=== PATIENT | male | born 2000 | race African-American/Black ===

== ENCOUNTER 2023-10-04 15:32 | Emergency (ER) | payer OTHER ==
[2023-10-04 17:31] LABS: SARS-CoV-2 Antigen Rapid Res Negative (Negative)
--- NOTE | 2023-10-04 17:43 | ER ---
Nurse's Notes [facility] Name: Yadi Garibay Age: 23 yrs Sex: Male : 2000 Arrival Date: 10/04/2023 Time: 15:32 Bed 12 Private MD: Diagnosis: Streptococcal pharyngitis Presentation: 10/04 16:02 Chief complaint: Patient states: PATIENT STATES DIARRHEA AND SORE THROAT X 3 DAYS. db Coronavirus screen: Client denies travel out of the [place] in the last 14 days. At this time, the client does not indicate any symptoms associated with coronavirus-19. Ebola Screen: Patient negative for fever greater than or equal to 101.5 degrees Fahrenheit, and additional compatible Ebola Virus Disease symptoms Patient denies exposure to infectious person. Patient denies travel to an Ebola-affected area in the 21 days before illness onset. No symptoms or risks identified at this time. Initial Sepsis Screen: Does the patient meet any 2 criteria? HR > 90 bpm. Does the patient have a suspected source of infection? No. Patient's initial sepsis screen is negative. Risk Assessment: Do you want to hurt yourself or someone else? Patient reports no desire to harm self or others. Onset of symptoms was October 04, 2023. 16:02 Method Of Arrival: Ambulatory db 16:02 Acuity: FANNY 3 db Triage Assessment: 16:04 General: Appears in no apparent distress. comfortable, Behavior is calm, cooperative. db Pain: Complains of pain in THROAT. Neuro: Level of Consciousness is awake, alert, obeys commands, Oriented to person, place, time, situation. GI: No deficits noted. Reports diarrhea. Historical: - Allergies: 16:04 No Known Allergies; db - Immunization history:: Adult Immunizations unknown, Client reports receiving the 2nd dose of the Covid vaccine. - Social history:: Smoking status: Smoking status: Patient reports the use of cigarette tobacco products, cigars. - Family history:: not pertinent. Screenin:56 [facility] ED Fall Risk Assessment (Adult) History of falling in the last 3 months, cp4 including since admission. 17:56 [facility] ED Fall Risk Assessment (Adult) History of falling in the last 3 months, cp4 including since admission No falls in past 3 months (0 pts) Confusion or Disorientation No (0 pts) Intoxicated or Sedated No (0 pts) Impaired Gait No (0 pts) Mobility Assist Device Used No (0 pt) Altered Elimination No (0 pt) Score/Fall Risk Level 0 - 2 = Low Risk Oriented to surroundings, Maintained a safe environment, Educated pt \T\ family on fall prevention, incl call for assistance when getting out of bed, Hourly rounding (assess needs \T\ fall precautionary measures) done. Abuse screen: Denies threats or abuse. Nutritional screening: No deficits noted. Tuberculosis screening: No symptoms or risk factors identified. Assessment: 17:56 General: Appears in no apparent distress. Behavior is calm, cooperative, appropriate cp4 for age. Vital Signs: 16:02 BP 150 / 92; Pulse 116; Resp 18; Temp 100.6(O); Pulse Ox 98% ; Weight 74.84 kg; Height db 5 ft. 6 in. ; 17:58 BP 146 / 91; Pulse 100; Resp 16; Pulse Ox 99% ; cp4 16:02 Body Mass Index 26.63 (74.84 kg, 167.64 cm) db ED Course: 15:34 Patient arrived in ED. mr 15:35 Jose Arredondo MD is Attending Physician. rt 16:04 Triage completed. db 16:05 Arm band placed on. db 16:57 SARS RAPID Sent. bc6 16:57 Strep Sent. bc6 16:57 Influenza Screen (a \T\ B) Sent. bc6 17:23 Patient placed in an exam room, on a stretcher. ll1 17:27 Christiane Ayala is Primary Nurse. cp4 17:56 Bed in low position. Call light in reach. Side rails up X 1. Provided Education on: cp4 strep throat. 17:56 No provider procedures requiring assistance completed. Patient did not have IV access cp4 during this emergency room visit. Administered Medications: 17:40 Drug: Ibuprofen PO 600 mg PO once Route: PO; cp4 18:01 Follow up: Response: No adverse reaction cp4 Medication: 17:56 VIS not applicable for this client. cp4 Outcome: 17:42 Discharge ordered by . rt 17:56 Discharged to home ambulatory, cp4 17:56 Condition: stable 17:56 Discharge instructions given to patient, Instructed on discharge instructions, follow up and referral plans. medication usage, Demonstrated understanding of instructions, follow-up care, medications, Prescriptions given X 1, 18:02 Patient left the ED. cp4 Signatures: Francisca Thompsno, Reg Reg mr Reyna Longo, RN RN ll1 Ivette Lyons RN RN db Jose Arredondo MD MD rt Wendy Anderson 6 Christiane Ayala cp4 Corrections: (The following items were deleted from the chart) 16:05 16:04 Arm band placed on Patient placed in an exam room, mar manuel
--- NOTE | 2023-10-04 17:43 | EDPHYS ---
Physician Documentation [facility] Name: Yadi Garibay Age: 23 yrs Sex: Male : 2000 Arrival Date: 10/04/2023 Time: 15:32 Bed 12 Private MD: ED Physician Jose Arredondo HPI: 10/04 17:54 This 23 yrs old Black Male presents to ER via Ambulatory with complaints of Throat rt problem, Diarrhea. 17:54 Patient presents to the ED with sore throat, diarrhea, cough, fever, chills, body aches rt for the past 3 days. States that symptoms have somewhat worsened today. Denies difficulty swallowing. Denies other acute complaints at this time, symptoms are mild in severity, no other aggravating relieving factors. Historical: - Allergies: 16:04 No Known Allergies; db - Immunization history:: Adult Immunizations unknown, Client reports receiving the 2nd dose of the Covid vaccine. - Social history:: Smoking status: Smoking status: Patient reports the use of cigarette tobacco products, cigars. - Family history:: not pertinent. ROS: 17:54 Abdomen/GI: Negative for abdominal pain, nausea, vomiting, diarrhea, and constipation, rt Skin: Negative for injury, rash, and discoloration, Neuro: Negative for headache, weakness, numbness, tingling, and seizure, Psych: Negative for depression, anxiety, suicide ideation, homicidal ideation, and hallucinations, 17:54 Constitutional: Positive for body aches, chills, fever, malaise, 17:54 ENT: Positive for rhinorrhea, sore throat, 17:54 Respiratory: Positive for cough, Negative for shortness of breath, Exam: 17:54 Constitutional: This is a well developed, well nourished patient who is awake, alert, rt and in no acute distress. Head/Face: Normocephalic, atraumatic. Chest/axilla: Normal chest wall appearance and motion. Nontender with no deformity. No lesions are appreciated. Cardiovascular: Regular rate and rhythm with a normal S1 and S2. No gallops, murmurs, or rubs. Normal PMI, no JVD. No pulse deficits. Respiratory: Lungs have equal breath sounds bilaterally, clear to auscultation and percussion. No rales, rhonchi or wheezes noted. No increased work of breathing, no retractions or nasal flaring. Abdomen/GI: Soft, non-tender, with normal bowel sounds. No distension or tympany. No guarding or rebound. No evidence of tenderness throughout. Skin: Warm, dry with normal turgor. Normal color with no rashes, no lesions, and no evidence of cellulitis. MS/ Extremity: Pulses equal, no cyanosis. Neurovascular intact. Full, normal range of motion. Neuro: Awake and alert, GCS 15, oriented to person, place, time, and situation. Cranial nerves II-XII grossly intact. Motor strength 5/5 in all extremities. Sensory grossly intact. Cerebellar exam normal. Normal gait. Psych: Awake, alert, with orientation to person, place and time. Behavior, mood, and affect are within normal limits. 17:54 ENT: Moist mucous membranes, posterior pharyngeal erythema without exudates or tonsil hypertrophy, uvula is midline. Vital Signs: 16:02 BP 150 / 92; Pulse 116; Resp 18; Temp 100.6(O); Pulse Ox 98% ; Weight 74.84 kg; Height db 5 ft. 6 in. ; 17:58 BP 146 / 91; Pulse 100; Resp 16; Pulse Ox 99% ; cp4 16:02 Body Mass Index 26.63 (74.84 kg, 167.64 cm) db MDM: 16:08 Patient medically screened. rt 17:54 Differential diagnosis: Strep, flu, COVID. Data reviewed: vital signs, nurses notes, rt lab test result(s). Test considered but Not performed: CT: No clinical evidence to suggest RPA, SOILS ANALYST, Erich's angina, CT scan is not indicated. Counseling: I had a detailed discussion with the patient and/or guardian regarding the historical points, exam findings, and any diagnostic results supporting the discharge/admit diagnosis, lab results, the need for outpatient follow up. 10/04 16:09 Order name: Influenza Screen (a \T\ B); Complete Time: 17:37 rt 10/04 16:09 Order name: Strep rt 10/04 16:09 Order name: SARS RAPID; Complete Time: 17:37 rt Administered Medications: 17:40 Drug: Ibuprofen PO 600 mg PO once Route: PO; cp4 18:01 Follow up: Response: No adverse reaction cp4 Disposition Summary: 12/06/23 17:42 Discharge Ordered Notes: Location: Home rt Problem: new rt Symptoms: are unchanged rt Condition: Stable rt Diagnosis - Streptococcal pharyngitis rt Followup: rt - With: Private Physician - When: 2 - 3 days - Reason: Discharge Instructions: - Discharge Summary Sheet rt - Strep Throat, Adult rt Forms: - Medication Reconciliation Form rt - Thank You Letter rt - Antibiotic Education rt - Prescription Opioid Use rt - Patient Portal Instructions rt - Leadership Thank You Letter rt Prescriptions: - Amoxicillin 875 mg Oral Tablet - take 1 tablet ORAL route every 12 hours for 10 days; 20 tablet; Refills: 0, rt Product Selection Permitted Signatures: Dispatcher [employer] Ivette Alexandra RN RN db Jose Arredondo MD MD rt Christiane Ayala cp4
[2023-10-04] MEDS ORDERED: IBUPROFEN 200 MG TAB PO ONE (17:46)
[2023-10-04 19:52] VITALS: TEMP 100.6
[2023-10-04 19:54] VITALS: BP 146/91; O2SAT 99
== END 2023-10-04 18:02 | disposition home or self-care (01) ==
LOC: ER 15:32
DX: J02.0 Streptococcal pharyngitis (principal); Z11.52 Encounter for screening for COVID-19; Z72.0 Tobacco use
CPT/HCPCS: 36415; 87081; 87804; 87811; 99283